=== PATIENT | female | born 1955 | race African-American/Black ===

== ENCOUNTER 2016-11-06 07:23 | Emergency (ER) | payer MEDICARE ==
[~2016-11-06] VITALS: Ht 152.4 cm; Wt 56.7 kg
[~2016-11-06 07:23] MED LIST: AMLO10TA4 PO; CODE1CAP19 PO; CODE1CAP8 PO; CYAN10005 PO; FERR325T72 PO; FURO-69 PO; HYDR-2666 PO; LISI-334 PO; OXYC-244 PO; OXYC-250 PO; OXYC-323 PO; OXYC10TA32 PO; Oxycodone Hcl/Acetaminophen PO; PANT40TA3 PO
[2016-11-06 07:46] VITALS: BP 139/71
--- NOTE | 2016-11-06 08:00 | PHYS DOC ---
Past Medical History Past Medical History: CVA, Hypertension, Migraines, Other Additional Past Medical Histor: Chronic back pain, Bulging discs Past Surgical History: Appendectomy, Hip Replacement, Hysterectomy, Tonsillectomy Additional Past Surgical Histo: Right hip replacement; tubal ligation, left rotator cuff Alcohol Use: None Drug Use: None Adult General Chief Complaint Chief Complaint: MECHANICAL FALL HPI HPI Patient is a 61 year old female with history of hypertension,migraines, CVA, chronic back pain, who presents today with right posterior neck pain that began 5 days ago after she fell. Patient states she hit her neck on the vanity. Patient denies any loss of consciousness. She appears restless this morning, she states she took MS Contin earlier this morning. Review of Systems Review of Systems Constitutional: Denies fever or chills [] Eyes: Denies change in visual acuity, redness, or eye pain [] HENT: Denies nasal congestion or sore throat [] Respiratory: Denies cough or shortness of breath [] Cardiovascular: No additional information not addressed in HPI [] GI: Denies abdominal pain, nausea, vomiting, bloody stools or diarrhea [] : Denies dysuria or hematuria [] Musculoskeletal: Neck pain Integument: Denies rash or skin lesions [] Neurologic: Denies headache, focal weakness or sensory changes [] Endocrine: Denies polyuria or polydipsia [] Allergies Allergies Allergies Coded Allergies Type Severity Reaction Last Updated Verified Penicillins Allergy Intermediate Rash 03/17/15 Yes Physical Exam Physical Exam Constitutional: Well developed, well nourished, no acute distress, non-toxic appearance. [] HENT: Normocephalic, atraumatic, bilateral external ears normal, oropharynx moist, no oral exudates, nose normal. [] Eyes: PERRLA, EOMI, conjunctiva normal, no discharge. [] Neck: Posterior right neck with a small contusion. Normal range of motion, mild paraspinal muscle tenderness to the right posterior cervical spine, no midline tenderness, supple, no stridor. [] Cardiovascular:Heart rate regular rhythm, no murmur [] Lungs & Thorax: Bilateral breath sounds clear to auscultation [] Abdomen: Bowel sounds normal, soft, no tenderness, no masses, no pulsatile masses. [] Skin: Warm, dry, no erythema, no rash. [] Back: No tenderness, no CVA tenderness. [] Extremities: No tenderness, no cyanosis, no clubbing, ROM intact, no edema. [] Neurologic: Alert and oriented X 3, normal motor function, normal sensory function, no focal deficits noted. [] Psychologic: Affect normal, judgement normal, mood normal. [] Current Patient Data Vital Signs Vital Signs Date Time Temp Pulse Resp B/P Pulse Ox O2 Delivery O2 Flow Rate FiO2 11/06/16 07:46 97.9 65 16 98 Room Air 97.9 EKG EKG [] Radiology/Procedures Radiology/Procedures []PROCEDURE: CERVICAL SPINE WO CONTRAST CERVICAL SPINE WO CONTRAST History:Pain, fall 5 days ago, right-sided pain Technique: Noncontrast CT imaging was performed of cervical spine, multiplanar reconstruction images submitted. Exposure: One or more of the following individualized dose reduction techniques were utilized for this exam: 1. Automated exposure control. 2. Adjustment of the mA and/or KV according to patient size. 3. Use of iterative reconstruction technique. Comparison: None Findings:There is mild/moderate reversal of the lordotic curvature centered about C4-5. Cervical vertebral body stature and AP alignment are adequate. Atlantoaxial distance is within normal limits, associated degenerative change. There is adequate alignment of the lateral masses of C1 relative to C2. Occipital condylar-C1 articulation is maintained. No acute cervical spine fracture is identified. There is no significant osseous cervical spinal stenosis or neural foramina compromise. Impression: 1.No acute cervical spine fracture is identified. There is reversal of the lordotic curvature, nonspecific although could be associated with spasm.. DICTATED and SIGNED BY: SERENA SERRANO MD DATE: 11/06/16 0852 CC: BRADY HEWITT APRN; SEEMA GUILLEN MD ~ Course & Med Decision Making Course & Med Decision Making Pertinent Labs and Imaging studies reviewed. (See chart for details) Patient is in the ED with neck pain after falling [address] of the cervical spine was negative for any acute findings but was noted for spasms. Patient was discharged with Flexeril, she already has MS Contin for chronic back pain. Heat recommended to her neck. Follow-up with her own PCP in the next 3-7 days. She was provided return precautions and discharged in stable condition. Dragon Disclaimer Dragon Disclaimer This electronic medical record was generated, in whole or in part, using a voice recognition dictation system. Departure Departure Impression: Primary Impression: Fall from standing Additional Impressions: Acute cervical sprain Spasm of cervical paraspinous muscle Disposition: 01 HOME, SELF-CARE Condition: STABLE Referrals: SEEMA GUILLEN MD (PCP) Follow-up with your own doctor in the next 3-7 days. Patient Instructions: Cervical Sprain, [id number] Additional Instructions: You were seen for neck pain after falling. We recommend you apply heat to the area. Take the muscle relaxers as needed. Continue taking your MS Contin for pain. Follow-up with your own doctor as needed. Scripts Cyclobenzaprine Hcl 10 Mg Tablet1 Tab PO TID #30 TAB Prov:BRADY HEWITT APRN 11/06/16 Problem Qualifiers Primary Impression: Fall from standing Encounter type: initial encounter Qualified Code: W19.XXXA - Unspecified fall, initial encounter Additional Impressions: Acute cervical sprain Encounter type: initial encounter Qualified Code: S13.9XXA - Sprain of joints and ligaments of unspecified parts of neck, initial encounter BRADY HEWITT APRN Nov 06, 2016 08:00
--- NOTE | 2016-11-06 08:58 | RAD ---
CERVICAL SPINE WO CONTRAST History:Pain, fall 5 days ago, right-sided pain Technique: Noncontrast CT imaging was performed of cervical spine, multiplanar reconstruction images submitted. Exposure: One or more of the following individualized dose reduction techniques were utilized for this exam: 1. Automated exposure control. 2. Adjustment of the mA and/or KV according to patient size. 3. Use of iterative reconstruction technique. Comparison: None Findings:There is mild/moderate reversal of the lordotic curvature centered about C4-5. Cervical vertebral body stature and AP alignment are adequate. Atlantoaxial distance is within normal limits, associated degenerative change. There is adequate alignment of the lateral masses of C1 relative to C2. Occipital condylar-C1 articulation is maintained. No acute cervical spine fracture is identified. There is no significant osseous cervical spinal stenosis or neural foramina compromise. Impression: 1.No acute cervical spine fracture is identified. There is reversal of the lordotic curvature, nonspecific although could be associated with spasm..
[2016-11-06] MEDS ORDERED: CYCL10TA2 PO (09:21)
== END 2016-11-06 09:35 | disposition home or self-care (01) ==
LOC: ER 07:23
DX: S13.4XXA Sprain of ligaments of cervical spine, initial encounter (principal); I10 Essential (primary) hypertension; G43.909 Migraine, unspecified, not intractable, without status migrainosus; G89.29 Other chronic pain; M54.9 Dorsalgia, unspecified; Z86.73 Personal history of transient ischemic attack (TIA), and cerebral infarction without residual deficits; Z09 Encounter for follow-up examination after completed treatment for conditions other than malignant neoplasm; Z96.641 Presence of right artificial hip joint; Z90.710 Acquired absence of both cervix and uterus; Z98.51 Tubal ligation status; Z88.0 Allergy status to penicillin; W01.198A Fall on same level from slipping, tripping and stumbling with subsequent striking against other object, initial encounter; Y93.89 Activity, other specified; Y92.89 Other specified places as the place of occurrence of the external cause; Y99.8 Other external cause status
CPT/HCPCS: 72125; 99284-25

== ENCOUNTER → 2017-06-15 | Outpatient (CLI) | payer MEDICARE ==
[~2017-06-15] MED LIST changes: +AMLO5TAB2 PO; +CYCL10TA2 PO; -HYDR-2666 PO; +HYDR-2758 PO; +MORP30TA83 PO; -OXYC-244 PO; -OXYC-250 PO; +OXYC-327 PO; +OXYC-328 PO; -OXYC10TA32 PO; +OXYC10TA45 PO; +SENN8.6T99 PO
[2017-06-15 11:51] LABS: BASO # 0.1 x10^3/uL (0.0-0.2); BASO % 2 % (0-3); EOS % 1 % (0-3); HEMATOCRIT 29.2 % (36.0-47.0); HEMOGLOBIN 9.8 g/dL (12.0-15.5); LYMPH # 2.4 x10^3/uL (1.0-4.8); LYMPH % 27 % (24-48); MEAN CORPUSCULAR HEMOGLOBIN 22 pg (25-35); MEAN CORPUSCULAR HGB CONC 34 g/dL (31-37); MEAN CORPUSCULAR VOLUME 66 fL (79-100); MONO % 6 % (0-9); NEUT % 64 % (31-73); PLATELET COUNT 383 x10^3/uL (140-400); RED BLOOD COUNT 4.43 x10^6/uL (3.50-5.40); RED CELL DISTRIBUTION WIDTH 20.9 % (11.5-14.5); WHITE BLOOD COUNT 8.7 x10^3/uL (4.0-11.0)
[2017-06-15 11:52] LABS: BILIRUBIN,URINE NEGATIVE (NEG); GLUCOSE,URINE NEGATIVE (NEG); NITRITE,URINE POSITIVE (NEG); PROTEIN,URINE NEGATIVE (NEG-TRACE); UROBILINOGEN,URINE 0.2 mg/dL (0.2 mg/dL)
--- NOTE | 2017-06-15 11:54 | EKG ---
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
[2017-06-15 11:59] LABS: ALBUMIN 3.2 g/dL (3.4-5.0); CALCIUM 8.5 mg/dL (8.5-10.1); CREATININE 0.7 mg/dL (0.6-1.0); GFR 103.3; POTASSIUM 3.3 mmol/L (3.5-5.1)
[2017-06-15 12:02] LABS: INR 1.1 (0.8-1.1); PROTHROMBIN TIME PATIENT 13.8 SEC (11.7-14.0)
[2017-06-15 12:12] LABS: BACTERIA,URINE MANY /HPF (0-FEW); RBC,URINE 0 /HPF (0-2); SQUAMOUS EPITHELIAL CELL,UR MOD /LPF; WBC,URINE >40 /HPF (0-4)
--- NOTE | 2017-06-15 12:23 | RAD ---
Indication preop. Anticipated shoulder replacement. Frontal and lateral views of the chest were obtained and are compared to an examination 03/16/2015. The heart and pulmonary vessels appear normal. The mediastinum has a normal appearance. The lungs are clear. There is no pleural fluid or pneumothorax. Degenerative changes are noted about the left shoulder. IMPRESSION:: No acute or focal process is seen in the chest
[2017-06-15 12:39] LABS: ANISOCYTOSIS MOD; HYPOCHROMIA MOD; MICROCYTOSIS MARKED; OVALOCYTES FEW; PLT ESTIMATE ADEQUATE (ADEQUATE); POIKILOCYTOSIS SLIGHT; TARGET CELLS MOD
[2017-06-15 12:40] LABS: SCHISTOCYTES FEW
== END | disposition home or self-care (01) ==
LOC: SURGPAT 10:44
PROVIDERS: ATTEND Orthopaedic Surgery
DX: Z01.818 Encounter for other preprocedural examination (principal); M19.012 Primary osteoarthritis, left shoulder; R79.89 Other specified abnormal findings of blood chemistry
CPT/HCPCS: 36415; 71020; 80048; 81001; 82040; 85025; 85610; 85651; 85730; 87086; 87186; 87641; 93005

== ENCOUNTER 2017-06-19 05:32 | Day surgery (SDC) | payer MEDICARE ==
[~2017-06-19] VITALS: Ht 152.4 cm; Wt 48.6 kg
[2017-06-19] MEDS ORDERED: HYDROcodone/APAP 7.5/325MG 1 TAB TABLET PO PRN (06:00)
[2017-06-19] MEDS ORDERED: TV=100ml MORPHINE 5 MG, KETOROLAC 30 MG, ROPIVacaine 0.5% PF 60 ML, EPINEPH... INT ART ONE ×5 (06:00)
[2017-06-19] MEDS ORDERED: CELECOXIB 200 MG CAPSULE. PO PRN (06:00)
[2017-06-19 06:18] LABS: BILIRUBIN,URINE NEGATIVE (NEG); GLUCOSE,URINE NEGATIVE (NEG); NITRITE,URINE POSITIVE (NEG); PH,URINE 6.5; PROTEIN,URINE NEGATIVE (NEG-TRACE); UROBILINOGEN,URINE 0.2 mg/dL (0.2 mg/dL)
[2017-06-19 06:26] LABS: BACTERIA,URINE MANY /HPF (0-FEW); SQUAMOUS EPITHELIAL CELL,UR MANY /LPF; WBC,URINE >40 /HPF (0-4)
[2017-06-19] MEDS: IV RINGERS,LACTATED 1000ML 1,000 ML IV SCH ×2 (06:34→06:45)
[2017-06-19] MEDS ORDERED: CLINDAMYCIN PREMIX 600 MG/50 ML BAG. IV ONE (06:40)
[2017-06-19] MEDS ORDERED: LIDOCAINE 1% PF 2 ML VIAL. ID PRN (07:00)
[2017-06-19] MEDS ORDERED: ONDANSETRON PF 4 MG/2 ML VIAL. IV PRN (07:00)
[2017-06-19] MEDS ORDERED: MORPHINE SULFATE 4 MG/ML DISP.SYRIN. IV PRN (07:00)
[2017-06-19] MEDS ORDERED: PROCHLORPERAZINE 10 MG/2 ML VIAL. IV PRN (07:00)
[2017-06-19] MEDS ORDERED: HYDROmorphone 2 MG/ML VIAL IV PRN (07:00)
[2017-06-19] MEDS ORDERED: fentaNYL PF VIAL 100 MCG/2 ML VIAL IV PRN ×2 (07:00)
[2017-06-19] MEDS ORDERED: CLINDAMYCIN 600MG PREMIX 50 ML IV PRN (08:00)
[2017-06-30] MEDS ORDERED: POTA10TA12 PO (16:36)
== END 2017-06-19 08:40 | disposition home or self-care (01) ==
LOC: OPSVCIP 05:32 → UNDOADMIN 05:32 → OPS 05:32 → EDSTATUS 07:30 → OPS 08:40 → UNDODISIN 08:40
PROVIDERS: ATTEND Orthopaedic Surgery
DX: M87.812 Other osteonecrosis, left shoulder (principal); Z53.8 Procedure and treatment not carried out for other reasons; I10 Essential (primary) hypertension; D57.3 Sickle-cell trait; K29.70 Gastritis, unspecified, without bleeding; K21.9 Gastro-esophageal reflux disease without esophagitis; E87.6 Hypokalemia; Z88.0 Allergy status to penicillin; Z86.73 Personal history of transient ischemic attack (TIA), and cerebral infarction without residual deficits; Z79.899 Other long term (current) drug therapy
CPT/HCPCS: 36415; 81001; 86850; 86900; 86901; 87086; 87186; J0171; J1885; J2270; J2795; J3490; J7120

== ENCOUNTER 2017-07-04 05:51 | Inpatient (IN) | payer MEDICARE ==
[~2017-07-04] VITALS: Ht 154.9 cm; Wt 51.3 kg
[2017-07-04] VITALS (8 sets, daily range): BP systolic 102–140; BP diastolic 61–85
[~2017-07-04 05:51] MED LIST changes: +POTA10TA12 PO
[2017-07-04] MEDS ORDERED: HYDROcodone/APAP 7.5/325MG 1 TAB TABLET PO PRN ×2 (06:00→07:45)
[2017-07-04] MEDS ORDERED: CELECOXIB 200 MG CAPSULE. PO PRN (06:00)
[2017-07-04] MEDS ORDERED: CLINDAMYCIN 600MG PREMIX 50 ML IV PRN (06:00)
[2017-07-04] MEDS ORDERED: MORPHINE SULFATE 2 MG/ML DISP.SYRIN. IV PRN (07:00)
[2017-07-04] MEDS ORDERED: IV RINGERS,LACTATED 1000ML 1,000 ML IV SCH (07:00)
[2017-07-04] MEDS ORDERED: ONDANSETRON PF 4 MG/2 ML VIAL. IV PRN (07:00)
[2017-07-04] MEDS ORDERED: PROCHLORPERAZINE 10 MG/2 ML VIAL. IV PRN (07:00)
[2017-07-04] MEDS ORDERED: HYDROmorphone 2 MG/ML VIAL IV PRN ×2 (07:00→07:45)
[2017-07-04] MEDS ORDERED: LIDOCAINE 1% PF 2 ML VIAL. ID PRN (07:00)
[2017-07-04] MEDS ORDERED: fentaNYL PF VIAL 100 MCG/2 ML VIAL IV PRN (07:00)
[2017-07-04] MEDS ORDERED: ROPIVacaine 0.5% PF 30 ML VIAL. ONE (07:01)
[2017-07-04] MEDS ORDERED: MIDAZOLAM HCL/PF 2 MG/2 ML VIAL. ONE ×2 (07:01→07:09)
[2017-07-04] MEDS ORDERED: DEXAMETHASONE SOD PHOS 20 MG/5 ML VIAL. ONE (07:05)
[2017-07-04] MEDS ORDERED: LIDOCAINE 2% PF Vial for OR 5 ML VIAL. ONE (07:05)
[2017-07-04] MEDS ORDERED: ONDANSETRON PF 4 MG/2 ML VIAL. ONE (07:05)
[2017-07-04] MEDS ORDERED: PROPOFOL 20 ML IV ONE (07:05)
[2017-07-04] MEDS ORDERED: FAMOTIDINE 20 MG/2 ML VIAL ONE (07:05)
[2017-07-04] MEDS ORDERED: CELE200C PO (07:08)
[2017-07-04] MEDS ORDERED: ROCURONIUM 100 MG/10 ML VIAL. ONE (07:08)
[2017-07-04] MEDS ORDERED: fentaNYL PF VIAL 100 MCG/2 ML VIAL ONE (07:08)
[2017-07-04] MEDS ORDERED: IV DEXTROSE 5 %-0.45 % NACL 1,000 ML IV SCH (07:39)
[2017-07-04] MEDS ORDERED: CALCIUM CARBONATE 500 MG TAB.CHEW PO PRN (07:45)
[2017-07-04] MEDS ORDERED: traMADol 50 MG TABLET PO PRN ×2 (07:45)
[2017-07-04] MEDS ORDERED: PROCHLORPERAZINE 5 MG TABLET. PO PRN (07:45)
[2017-07-04] MEDS ORDERED: HYDROcodone/APAP 10/325 1 TAB TABLET PO PRN (07:45)
[2017-07-04] MEDS ORDERED: ACETAMINOPHEN 325 MG TABLET. PO PRN (07:45)
[2017-07-04] MEDS ORDERED: ZOLPIDEM 5 MG TABLET. PO PRN (07:45)
[2017-07-04] MEDS ORDERED: DEXTROSE 50% 25 GM / 50ML DISP.SYRIN. IV PRN (07:45)
[2017-07-04] MEDS ORDERED: oxyCODONE/APAP 5/325 1 TAB TABLET PO PRN (07:45)
[2017-07-04] MEDS ORDERED: 0.9 % SODIUM CHLORIDE 10 ML DISP.SYRIN. IV PRN (07:45)
[2017-07-04] MEDS ORDERED: PHENYLEPHRINE in 0.9% NACL PF 1 MG/10 ML DISP.SYRIN. IV ONE (08:08)
--- NOTE | 2017-07-04 08:13 | HP ---
ADMIT DATE: 07/04/2017 Preoperative History and Physical: CHIEF COMPLAINT: Left shoulder pain. HISTORY OF PRESENT ILLNESS: The patient is a 62-year-old female who had a previous left frozen shoulder that resolved well, but had an episode a few months before where she was sleeping, lying on her left side, suddenly woke up with painful arm and fingers were numb and the shoulder continues to be very stiff and painful, difficulty reaching up and away from her body and constant pain even at the arm down at the side and with sleep. PAST MEDICAL HISTORY: Significant for hypertension, previous TIAs, headache, left shoulder pain, low back pain, avascular necrosis left hip, chronic pain syndrome. PAST SURGICAL HISTORY: Significant for total hip arthroplasty, tubal ligation and a previous left shoulder arthroscopy. FAMILY HISTORY: Significant for CHF and hypertension in her mother. Father with diabetes. Hypertension in her brother and several other siblings healthy, but family history also of diabetes, hypertension and sickle cell overall. SOCIAL HISTORY: Denies smoking, alcohol or drug use. She is , lives independently. MEDICATIONS: List is reviewed. ALLERGIES: INCLUDE PENICILLIN which gave her rash. REVIEW OF SYSTEMS: Denies any chest pain, shortness of breath, does have left shoulder pain, some radiating upper arm pain. Numbness and tingling have largely resolved. She still has some neck pain and chronic headaches at baseline. No focal weakness, numbness, tingling in the other extremities. Normal gait. No recent weight loss, change in bowel or bladder habits. PHYSICAL EXAMINATION: VITAL SIGNS: Per her admission sheet. GENERAL: She is alert and oriented, no acute distress, pleasant, calm and cooperative. HEENT: Atraumatic, normocephalic. HEART: Regular rate and rhythm. LUNGS: Clear to auscultation bilaterally. ABDOMEN: Benign. EXTREMITIES: Left shoulder reveals about 90 degrees elevation in forward flexion, 30 degrees elevation in abduction, extremes of internal and external rotation are limited. She has normal examination of the contralateral right shoulder, bilateral normal parascapular motion, good elbow and wrist motion, alignment, stability bilaterally. IMAGING: X-rays show significant collapse of the humeral head suspicious for avascular necrosis. IMPRESSION: Left shoulder pain and avascular necrosis. TREATMENT PLAN: We had previously gone over treatment options for her including a total shoulder arthroplasty, possibility of a reverse shoulder if rotator cuff is not intact which I expect it to be at this point. I emphasized to her the risks, benefits, postoperative course including the possibility of premature wear and loosening, infection, nerve or blood vessel damage, instability, medical or other anesthetic complications or continued pain and the long rehabilitation timeframe required for the shoulder, all her questions were answered. She wants to proceed with surgical evaluation and treatment with joint center admission to follow. RICKEY TINAJERO MD DR: DIANN/josh JOB#: [id number] / [id number]
[2017-07-04] MEDS: SENNOSIDES 8.6 MG TABLET PO SCH ×2 (09:00→20:26)
[2017-07-04] MEDS: LISINOPRIL 20 MG TABLET PO SCH (09:00)
[2017-07-04] MEDS: amLODIPine BESYLATE 5 MG TABLET PO SCH (09:00)
[2017-07-04] MEDS ORDERED: SENNOSIDES/DOCUSATE 8.6/50MG TABLET. PO SCH (09:00)
[2017-07-04] MEDS: MULTIVITAMIN with MINERAL TABLET. PO SCH (09:00)
[2017-07-04] MEDS: FUROSEMIDE 20 MG TABLET PO SCH (09:00)
[2017-07-04] MEDS: FERROUS SULFATE 325 MG TABLET. PO SCH ×2 (09:00→17:07)
[2017-07-04] MEDS ORDERED: NEOSTIGMINE METHYLSULFATE 5 MG/5 ML SYRINGE. ONE (09:53)
[2017-07-04] MEDS ORDERED: SEVOFLURANE > 120 MINUTES. IH ONE (09:54)
[2017-07-04] MEDS: fentaNYL PF VIAL 100 MCG/2 ML VIAL IV PRN ×3 (11:10→19:23)
--- NOTE | 2017-07-04 11:32 | RAD ---
Indication postop. 2 views of the left shoulder were obtained. There is a shoulder prosthesis. No complication or unexpected finding is seen. Postoperative changes are noted associated with the soft tissues.
--- NOTE | 2017-07-04 13:40 | PDOC4 ---
Operative Note Operative Note Date of surgery 07/04/2017 Preoperative diagnosis avascular necrosis left shoulder Postoperative diagnosis: Same Procedure: Left total shoulder arthroplasty Surgeon: Cindy Anesthesia: Gen. endotracheal plus interscalene block Estimated blood loss: 150 mL Complications: None Specimens: Dropped but sent for gross Operative indications: Patient is a 62-year-old female with long-standing left shoulder pain unresponsive to nonoperative treatment including injections physical therapy activity modification. X-rays showed avascular necrosis and she has very limited range of motion secondary to pain but apparently intact rotator cuff to its limited in function due to pain. I had gone over with her the possibility of total shoulder arthroplasty risks benefits postoperative course including infection premature wear or loosening continued pain nerve or blood vessel damage instability medical or other anesthetic consultations among others and the long recovery process typical of shoulder surgery all her questions were answered she wants proceed with surgical evaluation and treatment Operative text: Patient was identified procedure verified patient placed in the supine position on the operating table. After adequate amounts of general endotracheal anesthesia and pre-existing scalene block were obtained she was placed with the Tmax head rest and spider arm perkins and the left shoulder prepped and draped in standard sterile fashion. After timeout was performed patient procedure identified and verified a standard deltopectoral approach was carried out with the deltoid and cephalic vein taken laterally rotator cuff was noted to be intact deltoid was released distally and a small pectoralis release superiorly was carried out. Subscapularis was detached from its insertion and tagged with Ethibond suture. Severe avascular necrosis and collapse was confirmed with loose cartilage in the joint and degenerative changes on the glenoid side as well. The Belia Bigliani [place] shoulder system was used and anatomic cut was made reaming carried out up to a size 11 but trial fit very tightly and a size 10 trial was placed glenoid was exposed labrum was excised capsular release was carried out and any remaining glenoid cartilage was scraped away central drill hole was placed and anterior and superior drill holes were then carried out as well a size 46 trial glenoid was placed noted to have good coverage overall and an 18 module humerus head by 46 mm spherical head diameter was trial fit and noted to have overall good motion and adequate stability. Larger sizes were noted to have signs of overstuffing. Trial components were removed glenoid was repaired and dried and a 46 mm Bigliani [place] pegged glenoid component 46 mm diameter was cemented in place excess cement was removed a size 10 mm module humeral stem was noted to have excellent fit and placed in proper version. Trial fitting again carried out with the 18/ 46 modular humeral head which gave excellent stability and motion as well as ligament balance. Trial components were removed a 18 x 46 modular humeral head was tapped in place thorough irrigation carried out normal saline solution subscapularis repaired with #5 Ethibond suture superior pectoralis was likewise repaired fascial closure with #1 PDS strata fix subcutaneous closure with buried Vicryl and skin closure with 3-0 Monocryl strata fix suture sterile dressings were applied patient was returned to recovery room in stable condition having tolerated procedure well. Claudia francisco was present for the procedure assisted and skin closure RICKEY TINAJERO MD Jul 04, 2017 13:40
[2017-07-04] MEDS: CLINDAMYCIN 900MG PREMIX 50 ML IV SCH ×2 (13:55→19:53)
[2017-07-04] MEDS: oxyCODONE/APAP 7.5/325 1 TAB TABLET PO PRN ×2 (17:09→20:26)
[2017-07-04] MEDS: CELECOXIB 200 MG CAPSULE. PO SCH (20:26)
[2017-07-04] MEDS: MORPHINE ER 15 MG TABLET.ER PO SCH (20:32)
[2017-07-05] MEDS: CLINDAMYCIN 900MG PREMIX 50 ML IV SCH (02:16)
[2017-07-05 03:00] VITALS: BP 127/76
[2017-07-05 05:15] LABS: HEMATOCRIT 21.3 % (36.0-47.0)
[2017-07-05] MEDS ORDERED: MAGNESIUM HYDROXIDE 2,400 MG/30 ML ORAL.SUSP. PO PRN (06:00)
[2017-07-05 06:32] VITALS: BP 141/73
[2017-07-05] MEDS ORDERED: POTASSIUM CHLORIDE 10 MEQ TABLET.ER. PO SCH (08:00)
[2017-07-05] MEDS: SENNOSIDES 8.6 MG TABLET PO SCH (08:16)
[2017-07-05] MEDS: FUROSEMIDE 20 MG TABLET PO SCH (08:16)
[2017-07-05] MEDS: FERROUS SULFATE 325 MG TABLET. PO SCH (08:16)
[2017-07-05] MEDS: amLODIPine BESYLATE 5 MG TABLET PO SCH (08:16)
[2017-07-05] MEDS: MULTIVITAMIN with MINERAL TABLET. PO SCH (08:17)
[2017-07-05] MEDS: MORPHINE ER 15 MG TABLET.ER PO SCH (08:17)
[2017-07-05] MEDS: CELECOXIB 200 MG CAPSULE. PO SCH (08:17)
[2017-07-05] MEDS: LISINOPRIL 20 MG TABLET PO SCH (08:17)
[2017-07-05] MEDS: oxyCODONE/APAP 7.5/325 1 TAB TABLET PO PRN (10:23)
[2017-07-05] MEDS ORDERED: OXYC-327 PO (11:17)
[2017-07-05 15:00] VITALS: BP 93/64
[2017-07-05] MEDS ORDERED: BISACODYL 10 MG SUPP.RECT. PR PRN (16:00)
--- NOTE | 2017-07-05 18:08 | DS ---
DATE OF DISCHARGE: 07/05/2017 PRINCIPAL DIAGNOSIS: Avascular necrosis of left shoulder. PROCEDURE: Left total shoulder arthroplasty. DISPOSITION MEDICATIONS: Percocet 7.5/325 one p.o. q. 4 hours p.r.n. pain, Celebrex 200 mg p.o. daily and resume home medications. RESTRICTIONS: Include reporting any redness, drainage, fever, chills, uncontrolled pain or other problems. Gentle range of motion of left shoulder with physical therapy, avoiding extreme of external rotation. Sling for comfort. Follow up with Dr. White in 10-14 days. BRIEF DESCRIPTION OF HOSPITAL COURSE: The patient underwent an uncomplicated left total shoulder arthroplasty, had good pain control overall. She was asymptomatic, although her blood loss in surgery was listed as 350 mL by Anesthesia. The actual blood loss is significantly less, estimated about 150 mL at most. Before there was actually any fluid collected in the [place] suction machine, it was reading 180 mL; now therefore, I am skeptical of that amount. Postop hemoglobin was 7.0, although she is usually anemic and had no symptoms. Vital signs were stable and she got up and around well with physical therapy, did very well and was discharged home in stable condition. RICKEY WHITE MD DR: DIANN/josh JOB#: [id number] / [id number]
--- NOTE | 2017-07-06 14:48 | PATHOLOGY ---
PATHOLOGY REPORT * * * * * * * * FINAL DIAGNOSIS: Humeral head, left total shoulder arthroplasty: - Degenerative arthritis. (JPM:chidi; 07/06/2017) REPORT ELECTRONICALLY SIGNED BY: Delroy Gonzalez M.D. DATE/TIME: 07/06/2017 14:47 * * * * * * * * GROSS PATHOLOGY: Received in formalin labeled "Earle Spaulding, left shoulder tissue," is a humeral head measuring 4.0 x 4.0 x 1.3 cm in greatest dimensions. The articular surface is smooth to granular and pale steiner to light brown, with some cartilage separation from the bone surface. Sectioning the bone reveals mottled, pale white to pink-yellow cut surfaces. [employer]ing [employer] tissue is submitted in cassette A1, following decalcification. (DAC; 07/05/2017) INITIAL CPT CODE(S): A; 41618, 62638 Professional services [place] [place] [address] Technical services performed by [facility] at [address] [place] [address] [address], [place] [address]. SPECIMEN(S) RECEIVED: A.Left shoulder tissue CLINICAL HISTORY: Left shoulder pain PATIENT: EARLE SPAULDING /AGE: 6 1955 (Age: 62) PATIENT #: [id number] ALT CASE #: SPECIMEN COLLECTION DATE: 07/04/2017 SPECIMEN RECEIVED DATE: 07/04/2017 [facility] - [address] [place] [address] - PHONE: [phone] * * * END OF REPORT * * *
== END 2017-07-05 15:15 | disposition home or self-care (01) | DRG 483 ==
LOC: OPSVCIP 05:51 → 4 SOUTHEST 11:50
PROVIDERS: ADMIT Orthopaedic Surgery; ATTEND Orthopaedic Surgery
PROC: 0RRK0JZ Replacement of Left Shoulder Joint with Synthetic Substitute, Open Approach (ICD-10-PCS; principal; 2017-07-04 07:30)
DX: M87.812 Other osteonecrosis, left shoulder (principal); D57.1 Sickle-cell disease without crisis; I10 Essential (primary) hypertension; G89.4 Chronic pain syndrome; Z82.49 Family history of ischemic heart disease and other diseases of the circulatory system; Z83.3 Family history of diabetes mellitus; Z86.73 Personal history of transient ischemic attack (TIA), and cerebral infarction without residual deficits; Z96.649 Presence of unspecified artificial hip joint; Z98.51 Tubal ligation status; Z88.0 Allergy status to penicillin
CPT/HCPCS: 36415; 73030; 85014; 85018; 86850; 86900; 86901; 88304; 88311; J1100; J2250; J2370; J2405; J2704; J2710; J2795; J3010; J3490; J7030; J7120; S0028; 97110; 97116; 97535; C1769; J2001

== ENCOUNTER → 2018-02-13 | Outpatient (CLI) | payer MEDICARE | END | disposition home or self-care (01) | LOC: MRI 10:54 | DX: M48.061 Spinal stenosis, lumbar region without neurogenic claudication (principal); D18.09 Hemangioma of other sites; G89.29 Other chronic pain; E87.6 Hypokalemia; I10 Essential (primary) hypertension | CPT/HCPCS: 72148 ==

== ENCOUNTER 2018-12-18 05:47 | Inpatient (IN) | payer MEDICARE ==
[~2018-12-18] VITALS: Ht 152.4 cm; Wt 56.8 kg
[~2018-12-18 05:47] MED LIST changes: +AMLO5TAB10 PO; -AMLO5TAB2 PO; +CELE200C PO; -HYDR-2758 PO; +HYDR-2761 PO; -OXYC-323 PO; -OXYC-327 PO; -OXYC-328 PO; -OXYC10TA45 PO; +OXYC10TA46 PO; +OXYC1TAB15 PO; +OXYC1TAB19 PO; +OXYC1TAB22 PO
[2018-12-18] MEDS ORDERED: IPRATRPIUM/ALBUTEROL 0.5/2.5MG 3 ML NEBU. NEB ONE (06:15)
[2018-12-18] MEDS ORDERED: IV NORMAL SALINE 1000ML BAG 1,000 ML IV ONE (06:15)
[2018-12-18] MEDS ORDERED: methylPREDNISolone SOD SUCC PF 125 MG/2 ML VIAL. IV ONE (06:15)
[2018-12-18 06:34] LABS: BASO % 0 % (0-3); EOS # 0.1 x10^3/uL (0.0-0.7); EOS % 1 % (0-3); HEMATOCRIT 30.8 % (36.0-47.0); HEMOGLOBIN 10.1 g/dL (12.0-15.5); LYMPH # 1.4 x10^3/uL (1.0-4.8); LYMPH % 19 % (24-48); MEAN CORPUSCULAR HEMOGLOBIN 24 pg (25-35); MEAN CORPUSCULAR HGB CONC 33 g/dL (31-37); MEAN CORPUSCULAR VOLUME 72 fL (79-100); MONO # 0.7 x10^3/uL (0.0-1.1); MONO % 9 % (0-9); NEUT # 5.2 x10^3uL (1.8-7.7); NEUT % 71 % (31-73); PLATELET COUNT 274 x10^3/uL (140-400); RED BLOOD COUNT 4.27 x10^6/uL (3.50-5.40); RED CELL DISTRIBUTION WIDTH 19.9 % (11.5-14.5); WHITE BLOOD COUNT 7.4 x10^3/uL (4.0-11.0)
[2018-12-18 06:40] LABS: ALBUMIN 3.3 g/dL (3.4-5.0); ALBUMIN/GLOBULIN RATIO 0.9 (1.0-1.7); CALCIUM 8.3 mg/dL (8.5-10.1); CREATININE 0.8 mg/dL (0.6-1.0); GFR 88.2; TOTAL BILIRUBIN 0.2 mg/dL (0.2-1.0); TOTAL PROTEIN 6.8 g/dL (6.4-8.2)
[2018-12-18 06:43] LABS: POTASSIUM 2.6 mmol/L (3.5-5.1)
[2018-12-18 06:44] LABS: INFLUENZA A PATIENT POSITIVE (NEGATIVE); INFLUENZA B PATIENT NEGATIVE (NEGATIVE)
[2018-12-18] MEDS ORDERED: POTASSIUM CHLORIDE 20 MEQ TABLET.ER. PO ONE (07:00)
--- NOTE | 2018-12-18 07:20 | EKG ---
[facility] [address] [place] [address] Test Date: 2018-12-18 Test Time: 05:55:28 Pat Name: EARLE SPAULDING Department: Room: Gender: F Hourly Associate: : 1955 Requested By: MORA AGUILAR Order Number: [id number] Reading MD: Anthony Back MD Measurements Intervals [place] Rate: 74 P: 56 [place]: 174 QRS: 35 QRSD: 90 T: 43 QT: 392 QTc: 440 Interpretive Statements SINUS RHYTHM Electronically Signed On 12-18-2018 9:31:33 CDT by Anthony Back MD
--- NOTE | 2018-12-18 07:27 | PHYS DOC ---
Past Medical History Past Medical History: CVA, Hypertension, Migraines, Other Additional Past Medical Histor: Chronic back pain, Bulging discs Past Surgical History: Appendectomy, Hip Replacement, Hysterectomy, Tonsillectomy Additional Past Surgical Histo: Right hip replacement; tubal ligation, left rotator cuff Alcohol Use: None Drug Use: None Adult General Chief Complaint Chief Complaint: COUGH HPI HPI Patient is a 63-year-old female with multiple medical problems presents stating she's had subjective fever cough, congestion, body aches and malaise over the last couple days. She seems to think her cough and shortness of breath is worsening. It's her multiple other people in her home sick with similar illness. She did not have a flu shot this year. She states her temperature was as high as 100 yesterday.[] Review of Systems Review of Systems Constitutional: Per history of present illness[] Eyes: Denies change in visual acuity, redness, or eye pain [] HENT: Denies nasal congestion or sore throat [] Respiratory: Reports cough, shortness of breath and dyspnea on exertion[] Cardiovascular: No additional information not addressed in HPI [] GI: Denies abdominal pain, nausea, vomiting, bloody stools or diarrhea [] : Denies dysuria or hematuria [] Musculoskeletal: Denies back pain or joint pain [] Integument: Denies rash or skin lesions [] Neurologic: Denies headache, focal weakness or sensory changes [] Endocrine: Denies polyuria or polydipsia [] All other systems were reviewed and found to be within normal limits, except as documented in this note. Current Medications Current Medications Current Medications Medications (Trade) Dose Ordered Sig/Allison Start Time Stop Time Status Last Admin Dose Admin Albuterol/ Ipratropium (Duoneb) 6 ml 1X ONCE 12/18/18 06:15 12/18/18 06:16 DC 12/18/18 06:26 6 ML Methylprednisolone Sodium Succinate (SOLU-Medrol 125MG VIAL) 125 mg 1X ONCE 12/18/18 06:15 12/18/18 06:16 DC 12/18/18 06:34 125 MG Ondansetron HCl (Zofran) 4 mg PRN Q8HRS PRN 12/18/18 07:45 12/19/18 07:44 Potassium Chloride (Klor-Con) 40 meq 1X ONCE 12/18/18 07:00 12/18/18 07:02 DC 12/18/18 07:16 40 MEQ Sodium Chloride 1,000 ml @ 125 mls/hr Q8H 12/18/18 07:32 12/19/18 07:31 Allergies Allergies Allergies Coded Allergies Type Severity Reaction Last Updated Verified Penicillins Allergy Intermediate Rash 07/04/17 Yes Physical Exam Physical Exam Constitutional: Well developed, well nourished, moderate distress, appears acutely ill but nontoxic. [] HENT: Normocephalic, atraumatic, bilateral external ears normal, oropharynx moist, no oral exudates, nose normal. [] Eyes: PERRLA, EOMI, conjunctiva normal, no discharge. [] Neck: Normal range of motion, no tenderness, supple, no stridor. [] Cardiovascular:Heart rate regular rhythm, no murmur [] Lungs & Thorax: Scattered wheezes throughout both lungs[] Abdomen: Bowel sounds normal, soft, no tenderness, no masses, no pulsatile masses. [] Skin: Warm, dry, no erythema, no rash. [] Back: No tenderness, no CVA tenderness. [] Extremities: No tenderness, no cyanosis, no clubbing, ROM intact, no edema. [] Neurologic: Alert and oriented X 3, normal motor function, normal sensory function, no focal deficits noted. [] Psychologic: Very anxious. [] Current Patient Data Vital Signs Vital Signs Date Time Temp Pulse Resp B/P (MAP) Pulse Ox O2 Delivery O2 Flow Rate FiO2 12/18/18 07:30 78 144/80 (101) 100 Room Air 12/18/18 05:47 97.8 18 97.8 Lab Values Laboratory Tests Test 12/18/18 06:10 White Blood Count 7.4 x10^3/uL (4.0-11.0) Red Blood Count 4.27 x10^6/uL (3.50-5.40) Hemoglobin 10.1 g/dL (12.0-15.5) L Hematocrit 30.8 % (36.0-47.0) L Mean Corpuscular Volume 72 fL (79-100) L Mean Corpuscular Hemoglobin 24 pg (25-35) L Mean Corpuscular Hemoglobin Concent 33 g/dL (31-37) Red Cell Distribution Width 19.9 % (11.5-14.5) H Platelet Count 274 x10^3/uL (140-400) Neutrophils (%) (Auto) 71 % (31-73) Lymphocytes (%) (Auto) 19 % (24-48) L Monocytes (%) (Auto) 9 % (0-9) Eosinophils (%) (Auto) 1 % (0-3) Basophils (%) (Auto) 0 % (0-3) Neutrophils # (Auto) 5.2 x10^3uL (1.8-7.7) Lymphocytes # (Auto) 1.4 x10^3/uL (1.0-4.8) Monocytes # (Auto) 0.7 x10^3/uL (0.0-1.1) Eosinophils # (Auto) 0.1 x10^3/uL (0.0-0.7) Basophils # (Auto) 0.0 x10^3/uL (0.0-0.2) Sodium Level 147 mmol/L (136-145) H Potassium Level 2.6 mmol/L (3.5-5.1) *L Chloride Level 110 mmol/L (98-107) H Carbon Dioxide Level 21 mmol/L (21-32) Anion Gap 16 (6-14) H Blood Urea Nitrogen 7 mg/dL (7-20) Creatinine 0.8 mg/dL (0.6-1.0) Estimated GFR (Cockcroft-Gault) 88.2 BUN/Creatinine Ratio 9 (6-20) Glucose Level 88 mg/dL (70-99) Calcium Level 8.3 mg/dL (8.5-10.1) L Total Bilirubin 0.2 mg/dL (0.2-1.0) Aspartate Amino Transferase (AST) 18 U/L (15-37) Alanine Aminotransferase (ALT) 12 U/L (14-59) L Alkaline Phosphatase 90 U/L (46-116) Troponin I Quantitative < 0.017 ng/mL (0.000-0.055) NC-Afx-U-Type Natriuretic Peptide 28 pg/mL (0-124) Total Protein 6.8 g/dL (6.4-8.2) Albumin 3.3 g/dL (3.4-5.0) L Albumin/Globulin Ratio 0.9 (1.0-1.7) L Influenza Type A Antigen Positive (NEGATIVE) Influenza Type B Antigen Negative (NEGATIVE) Laboratory Tests 12/18/18 06:10 Laboratory Tests 12/18/18 06:10 EKG EKG [] Interpretation Time: EKG: Normal sinus rhythm rate of [address]-T changes Radiology/Procedures Radiology/Procedures [] Impressions: PROCEDURE: CHEST AP ONLY Portable chest, 12/18/2018: HISTORY: Cough, flu Comparison is made to a study from 06/15/2017. The heart is at the upper limits of normal in size. The pulmonary vascularity is normal. No pulmonary infiltrate is seen. There is no evidence of pleural fluid. A left shoulder prosthesis is in place. IMPRESSION: No acute cardiopulmonary abnormality is detected. Course & Med Decision Making Course & Med Decision Making Pertinent Labs and Imaging studies reviewed. (See chart for details) [ED course: Evaluation reveals a 63-year-old female is influenza positive. She was wheezing on arrival received DuoNeb 2 with only minimal improvement. She also received Solu-Medrol IV. Given the fact that she still is wheezing and very short of breath I feel she needs to be admitted to the hospital for evaluation. Her oxygen saturation was in the 80s with just walking around the room.] Dragon Disclaimer Dragon Disclaimer This electronic medical record was generated, in whole or in part, using a voice recognition dictation system. Departure Departure Impression: Primary Impression: Acute bronchospasm Additional Impression: Influenza A Disposition: 09 ADMITTED INPATIENT Admitting Physician: Yuan Bullock Condition: GUARDED Referrals: MALISSA ANTOINE (PCP) Problem Qualifiers MORA AGUILAR DO Dec 18, 2018 07:27
[2018-12-18] MEDS ORDERED: ONDANSETRON PF 4 MG/2 ML VIAL. IV PRN (07:45)
--- NOTE | 2018-12-18 07:48 | RAD ---
Portable chest, 12/18/2018: HISTORY: Cough, flu Comparison is made to a study from 06/15/2017. The heart is at the upper limits of normal in size. The pulmonary vascularity is normal. No pulmonary infiltrate is seen. There is no evidence of pleural fluid. A left shoulder prosthesis is in place. IMPRESSION: No acute cardiopulmonary abnormality is detected. Electronically signed by: Quinten Villa MD (12/18/2018 7:46 AM) [facility]
[2018-12-18] MEDS: IPRATRPIUM/ALBUTEROL 0.5/2.5MG 3 ML NEBU. NEB SCH ×4 (08:00→19:19)
--- NOTE | 2018-12-18 09:17 | NUR ---
IP: Pt is influenza + requiring droplet precautions for 5 days and 24 hours without a fever, whichever is longest.
[2018-12-18 09:30] VITALS: BP 131/65
[2018-12-18] MEDS: IV NORMAL SALINE 1000ML BAG 1,000 ML IV SCH ×2 (10:04→17:00)
[2018-12-18 10:54] VITALS: BP 142/82
[2018-12-18] MEDS: HYDROcodone/APAP 5/325MG 1 TAB TABLET PO PRN ×4 (11:27→23:27)
[2018-12-18] MEDS: OSELTAMIVIR 75 MG CAPSULE PO SCH ×2 (11:27→21:10)
--- NOTE | 2018-12-18 11:47 | HP ---
ADMIT DATE: 12/18/2018 CHIEF COMPLAINT: Shortness of breath and cough, fever, weakness. HISTORY OF PRESENT ILLNESS: The patient is a pleasant middle-aged female who presents with the above chief complaints. Basically, she has prodrome of viral syndrome. We did check for the flu. Here in the ER, she is positive. She does have multiple family members at home who have similar illness. Describes as agonizing, rated at 9/10, worse with moving, better with sitting still. We are going to admit the patient and give her some Tamiflu, IV fluids and resume her home meds, do some symptomatic management. PAST MEDICAL HISTORY: Hypertension, chronic pain, arthritis, narcotic dependent (she is on MS Contin, Percocet and Fiorinal), constipation. ALLERGIES: PENICILLIN. FAMILY HISTORY: Coronary artery disease. SOCIAL HISTORY: She does not drink, smoke or take drugs. MEDICATIONS: Reviewed, please refer to the MRAD. She is on amlodipine, lisinopril, Celebrex, Fiorinal, MS Contin, Percocet, potassium, Lasix and Senokot. REVIEW OF SYSTEMS: GENERAL: She complains of fevers. SKIN: No bruising, hair changes or rashes. EYES: No blurred, double or loss of vision. NOSE AND THROAT: No history of nosebleeds, hoarseness or sore throat. HEART: No history of palpitations, chest pain or shortness of breath on exertion. LUNGS: She complains of a cough. GASTROINTESTINAL: Denies changes in appetite, nausea, vomiting, diarrhea or constipation. GENITOURINARY: No history of frequency, urgency, hesitancy or nocturia. NEUROLOGIC: Denies history of numbness, tingling, tremor or weakness. PSYCHIATRIC: No history of panic, anxiety or depression. ENDOCRINE: No history of heat or cold intolerance, polyuria or polydipsia. EXTREMITIES: Denies muscle weakness, joint pain, pain on walking or stiffness. MUSCULOSKELETAL: She complains of weakness. PHYSICAL EXAMINATION: VITAL SIGNS: Temperature afebrile, pulse 92, respirations 18, blood pressure 131/65, O2 sat 96%. GENERAL: She is awake, very weak, appears quite ill. HEART: Distant S1, S2. LUNGS: Fine crackles. ABDOMEN: Soft. EXTREMITIES: Trace edema. SKIN: No rashes. PSYCHIATRIC: She seems depressed. VASCULAR: Good capillary refill. ENDOCRINE: No thyromegaly. LYMPHATICS: No cervical nodes. HEMATOPOIETIC: No bruises. LABORATORY DATA: White count 7, hemoglobin 10, platelets 274. Electrolytes: Sodium 147, potassium 2.6, chloride 110, bicarbonate 21, BUN 7, creatinine 0.8, glucose 88. Chest x-ray negative. ASSESSMENT AND PLAN: Influenza, hypokalemia, hypernatremia anion gap metabolic acidosis. The patient has been admitted. We will give her Tamiflu 75 p.o. b.i.d., IV fluids, replace potassium. Home meds, frequent labs. DVT prophylaxis. Full code. JOE BARNES DO DR: JULIANE/josh JOB#: [id number] / [id number]
--- NOTE | 2018-12-18 15:01 | NUR ---
Patient eligible for flu vaccine. She refused to have it administered today, prefers the shot to be given tomorrow.
[2018-12-18 15:04] VITALS: BP 142/82
[2018-12-18 15:20] VITALS: BP 160/99
--- NOTE | 2018-12-18 18:42 | NUR ---
Patient complains of intermittent substernal pain, squeezing, 9/10 for 2 days aggravated by cough, partially relieved by ibuprofen. Gave prn Lortab for pain, with relief to 5/10. Patient denies chest pain, abdominal pain, or radiation to the back. Abdomen is soft, non tender. We'll continue to monitor patient.
[2018-12-18 19:51] VITALS: BP 138/63
[2018-12-18 23:08] VITALS: BP 143/66
[2018-12-19 03:07] VITALS: BP 114/75
[2018-12-19] MEDS: IV NORMAL SALINE 1000ML BAG 1,000 ML IV SCH (03:52)
[2018-12-19] MEDS: HYDROcodone/APAP 5/325MG 1 TAB TABLET PO PRN (06:31)
[2018-12-19 07:30] VITALS: BP 165/94
[2018-12-19] MEDS ORDERED: oxyCODONE/APAP 7.5/325 1 TAB TABLET PO PRN (09:15)
[2018-12-19] MEDS ORDERED: ACETAMINOPHEN 500 MG TABLET PO PRN (09:15)
[2018-12-19] MEDS ORDERED: CELECOXIB 400 MG PO SCH (09:15)
[2018-12-19] MEDS ORDERED: ONDANSETRON PF 4 MG/2 ML VIAL. IV PRN (09:15)
[2018-12-19] MEDS ORDERED: ACETAMINOPHEN/CODEINE 300/30MG TABLET. PO PRN (09:15)
[2018-12-19] MEDS ORDERED: ONDANSETRON ODT 4 MG TAB.RAPDIS. PO PRN (09:15)
[2018-12-19] MEDS ORDERED: POTASSIUM CL 40MEQ IN 0.9%NACL 1,000 ML IV ONE (09:30)
[2018-12-19] MEDS ORDERED: BUTALB/APAP/CAFEIN 50/325/40MG TABLET. PO PRN (09:30)
[2018-12-19] MEDS: SENNOSIDES 8.6 MG TABLET PO SCH ×2 (09:30→20:55)
[2018-12-19 09:53] LABS: CREATININE 0.6 mg/dL (0.6-1.0)
[2018-12-19 09:56] LABS: POTASSIUM 2.8 mmol/L (3.5-5.1)
[2018-12-19] MEDS: IPRATRPIUM/ALBUTEROL 0.5/2.5MG 3 ML NEBU. NEB SCH ×4 (10:02→21:29)
--- NOTE | 2018-12-19 10:27 | PDOC ---
PROGRESS NOTES Chief Complaint Chief Complaint Influenza A+ Mild hypernatremia-147 Critical hypokalemia 2.6 SOA, cough, fevers secondary to above SIRS POA Increase anion gap 16 on admission By mouth intake 7 days Chronic leg edema-currently none--maintained on Lasix at home History of Present Illness History of Present Illness Admits to poor by mouth intake 7 days Potassium 2.6, sodium 147. Unsure why IVF was stopped yesterday So far no fevers here but was febrile at home. Anion gap 16 Plan: Restart fluids, I have elyte abnormalities i e increase anion gap KCl 401 K containing IVF for now Recheck potassium tomorrow Tamiflu started Other supportive meds, Robitussin, DuoNeb, H1 antagonists Never smoker Agrees with my plan of care Vitals Vitals Vital Signs Date Time Temp Pulse Resp B/P (MAP) Pulse Ox O2 Delivery O2 Flow Rate FiO2 12/19/18 10:02 Room Air 12/19/18 07:30 97.9 79 18 165/94 (117) 100 97.9 Physical Exam General: Alert, Oriented X3, Cooperative, No acute distress Heart: Regular rate, Normal S1, Normal S2 Lungs: Clear Abdomen: Normal bowel sounds, Soft, No tenderness Extremities: No clubbing, No cyanosis, No edema, Normal pulses Skin: No rashes, No breakdown, No significant lesion Labs LABS Laboratory Tests Test 12/19/18 09:30 Sodium Level 144 mmol/L (136-145) Potassium Level 2.8 mmol/L (3.5-5.1) Chloride Level 110 mmol/L (98-107) Carbon Dioxide Level 19 mmol/L (21-32) Anion Gap 15 (6-14) Blood Urea Nitrogen 5 mg/dL (7-20) Creatinine 0.6 mg/dL (0.6-1.0) Estimated GFR (Cockcroft-Gault) 123.0 Glucose Level 121 mg/dL (70-99) Calcium Level 8.0 mg/dL (8.5-10.1) Review of Systems Review of Systems Weak, myalgias, fevers, cough, no increased S OA, the rest of ROS 14 point negative Assessment and Plan Assessmemt and Plan Problems Medical Problems: (1) Acute bronchospasm Status: Acute (2) Influenza A Status: Acute Comment Review of Relevant I have reviewed the following items lefty (where applicable) has been applied. Labs Laboratory Tests Test 12/18/18 06:10 12/19/18 09:30 White Blood Count 7.4 x10^3/uL (4.0-11.0) Red Blood Count 4.27 x10^6/uL (3.50-5.40) Hemoglobin 10.1 g/dL (12.0-15.5) Hematocrit 30.8 % (36.0-47.0) Mean Corpuscular Volume 72 fL (79-100) Mean Corpuscular Hemoglobin 24 pg (25-35) Mean Corpuscular Hemoglobin Concent 33 g/dL (31-37) Red Cell Distribution Width 19.9 % (11.5-14.5) Platelet Count 274 x10^3/uL (140-400) Neutrophils (%) (Auto) 71 % (31-73) Lymphocytes (%) (Auto) 19 % (24-48) Monocytes (%) (Auto) 9 % (0-9) Eosinophils (%) (Auto) 1 % (0-3) Basophils (%) (Auto) 0 % (0-3) Neutrophils # (Auto) 5.2 x10^3uL (1.8-7.7) Lymphocytes # (Auto) 1.4 x10^3/uL (1.0-4.8) Monocytes # (Auto) 0.7 x10^3/uL (0.0-1.1) Eosinophils # (Auto) 0.1 x10^3/uL (0.0-0.7) Basophils # (Auto) 0.0 x10^3/uL (0.0-0.2) Sodium Level 147 mmol/L (136-145) 144 mmol/L (136-145) Potassium Level 2.6 mmol/L (3.5-5.1) 2.8 mmol/L (3.5-5.1) Chloride Level 110 mmol/L (98-107) 110 mmol/L (98-107) Carbon Dioxide Level 21 mmol/L (21-32) 19 mmol/L (21-32) Anion Gap 16 (6-14) 15 (6-14) Blood Urea Nitrogen 7 mg/dL (7-20) 5 mg/dL (7-20) Creatinine 0.8 mg/dL (0.6-1.0) 0.6 mg/dL (0.6-1.0) Estimated GFR (Cockcroft-Gault) 88.2 123.0 BUN/Creatinine Ratio 9 (6-20) Glucose Level 88 mg/dL (70-99) 121 mg/dL (70-99) Calcium Level 8.3 mg/dL (8.5-10.1) 8.0 mg/dL (8.5-10.1) Total Bilirubin 0.2 mg/dL (0.2-1.0) Aspartate Amino Transf (AST/SGOT) 18 U/L (15-37) Alanine Aminotransferase (ALT/SGPT) 12 U/L (14-59) Alkaline Phosphatase 90 U/L (46-116) Troponin I Quantitative < 0.017 ng/mL (0.000-0.055) XT-Suk-R-Type Natriuretic Peptide 28 pg/mL (0-124) Total Protein 6.8 g/dL (6.4-8.2) Albumin 3.3 g/dL (3.4-5.0) Albumin/Globulin Ratio 0.9 (1.0-1.7) Influenza Type A Antigen Positive (NEGATIVE) Influenza Type B Antigen Negative (NEGATIVE) Laboratory Tests Test 12/19/18 09:30 Sodium Level 144 mmol/L (136-145) Potassium Level 2.8 mmol/L (3.5-5.1) Chloride Level 110 mmol/L (98-107) Carbon Dioxide Level 19 mmol/L (21-32) Anion Gap 15 (6-14) Blood Urea Nitrogen 5 mg/dL (7-20) Creatinine 0.6 mg/dL (0.6-1.0) Estimated GFR (Cockcroft-Gault) 123.0 Glucose Level 121 mg/dL (70-99) Calcium Level 8.0 mg/dL (8.5-10.1) Medications Current Medications Albuterol/ Ipratropium (Duoneb) 6 ml 1X ONCE NEB Last administered on at 06:26; Start 12/18/18 at 06:15; Stop 12/18/18 at 06:16; Status DC Methylprednisolone Sodium Succinate (SOLU-Medrol 125MG VIAL) 125 mg 1X ONCE IV Last administered on 12/18/18at 06:34; Start 12/18/18 at 06:15; Stop 12/18/18 at 06:16; Status DC Sodium Chloride 1,000 ml @ 1,000 mls/hr 1X ONCE IV Last administered on at 06:34; Start 12/18/18 at 06:15; Stop 12/18/18 at 07:14; Status DC Potassium Chloride (Klor-Con) 40 meq 1X ONCE PO Last administered on at 07:16; Start 12/18/18 at 07:00; Stop 12/18/18 at 07:02; Status DC Ondansetron HCl (Zofran) 4 mg PRN Q8HRS PRN IV NAUSEA/VOMITING; Start 12/18/18 at 07:45; Stop 12/19/18 at 07:44; Status DC Sodium Chloride 1,000 ml @ 125 mls/hr Q8H IV Last administered on 12/19/18at 03 :52; Start 12/18/18 at 07:32; Stop 12/19/18 at 07:31; Status DC Albuterol/ Ipratropium (Duoneb) 3 ml RTQID NEB Last administered on 12/18/18at 19:19; Start 12/18/18 at 08:00; Stop 12/19/18 at 07:59; Status DC Acetaminophen/ Hydrocodone Bitart (Lortab 5/325) 1 tab PRN Q4HRS PRN PO PAIN Last administered on 12/19/18at 06:31; Start 12/18/18 at 11:30 Oseltamivir Phosphate (Tamiflu) 75 mg BID PO Last administered on 12/18/18at 21: 10; Start 12/18/18 at 12:00; Stop 12/23/18 at 11:59 Influenza Virus Vaccine (Afluria Trivalent 6928-1880 Syringe) 0.5 ml ONCE ONCE VAX IM ; Start 12/18/18 at 13:00; Stop 12/18/18 at 13:01; Status DC Influenza Virus Vaccine (Afluria Trivalent 3436-0145 Syringe) 0.5 ml ONCE ONCE VAX IM ; Start 12/19/18 at 08:45; Stop 12/19/18 at 08:46; Status DC Ondansetron HCl (Zofran) 4 mg PRN Q6HRS PRN IV NAUSEA/VOMITING; Start 12/19/18 at 09:15 Ondansetron HCl (Zofran Odt) 4 mg PRN Q6HRS PRN PO NAUSEA/VOMITING; Start 12/19 at 09:15 Potassium Chloride/Sodium Chloride 1,000 ml @ 75 mls/hr 1X ONCE IV ; Start at 09:30; Stop 12/19/18 at 22:49 Acetaminophen (Tylenol) 500 mg PRN Q6HRS PRN PO FEVER / TEMP; Start 12/19/18 at 09:15 Acetaminophen/ Codeine Phosphate (Tylenol #3) 1 tab PRN Q6HRS PRN PO PAIN MILD ; Start 12/19/18 at 09:15 Guaifenesin (Robitussin Dm) 10 ml PRN Q6HRS PRN PO COUGH; Start 12/19/18 at 09: 15 Cetirizine HCl (ZyrTEC) 10 mg DAILY PO ; Start 12/19/18 at 09:30 Albuterol/ Ipratropium (Duoneb) 3 ml RTQID NEB Last administered on 12/19/18at 10:02; Start 12/19/18 at 12:00 Amlodipine Besylate (Norvasc) 5 mg DAILY PO ; Start 12/19/18 at 09:30 Furosemide (Lasix) 20 mg DAILY PO ; Start 12/19/18 at 09:30 Lisinopril (Prinivil) 20 mg DAILY PO ; Start 12/19/18 at 09:30 Morphine Sulfate (Ms Contin) 15 mg BID PO ; Start 12/19/18 at 09:30 Oxycodone/ Acetaminophen (Percocet 7.5/ 325) 1 tab PRN Q4HRS PRN PO PAIN MOD TO SEV; Start 12/19/18 at 09:15 Potassium Chloride (Klor-Con) 10 meq DAILY08 PO ; Start 12/19/18 at 09:30 Non-Formulary Medication (Celecoxib (Celebrex)) 400 mg 1X PO ; Start 12/19/18 at 09:15; Status UNV Acetaminophen/ Butalbital/ Caffeine (Fioricet) 1 tab PRN BID PRN PO MIGRAINE HEADACHE; Start 12/19/18 at 09:30 Sennosides (Senna) 8.6 mg BID PO ; Start 12/19/18 at 09:30 Active Scripts Active Reported Percocet 7.5-325 Mg Tablet (Oxycodone/Acetaminophen) 1 Each Tablet 1 Tab PO PRN Q48HR PRN Celebrex (Celecoxib) 200 Mg Capsule 400 Mg PO 1X 30 Days Potassium Chloride 10 Meq Tablet.er 10 Meq PO DAILY Ms Contin (Morphine Sulfate) 30 Mg Tablet.er 15 Mg PO BID Senokot (Sennosides) 8.6 Mg Tablet 1 Tab PO BID Amlodipine Besylate 5 Mg Tablet 5 Mg PO DAILY Fiorinal-Cod [id number] Cap (Codeine/Butalbital/Asa/Caffein) 1 Each Capsule 1 Each PO PRN BID PRN Lasix (Furosemide) 20 Mg Tablet 1 Tab PO DAILY Lisinopril 20 Mg Tablet 20 Mg PO DAILY Vitals/I & O Vital Sign - Last 24 Hours 12/18/18 12/18/18 12/18/18 12/18/18 10:54 11:15 11:27 12:30 Temp 97.6 97.6 Pulse 71 Resp 20 20 B/P (MAP) 142/82 (102) Pulse Ox 96 96 96 O2 Delivery Room Air Room Air Room Air 12/18/18 12/18/18 12/18/18 12/18/18 14:53 15:04 15:20 15:55 Temp 97.6 98.3 97.6 98.3 Pulse 71 74 Resp 19 20 18 18 B/P (MAP) 142/82 (102) 160/99 (119) Pulse Ox 96 96 96 O2 Delivery Room Air Room Air Room Air 12/18/18 12/18/18 12/18/18 12/18/18 16:57 19:05 19:19 19:51 Temp 98.0 98.0 Pulse 81 Resp 18 20 B/P (MAP) 138/63 (88) Pulse Ox 96 100 O2 Delivery Room Air Room Air Room Air Room Air 12/18/18 12/18/18 12/18/18 12/19/18 20:00 23:08 23:27 00:27 Temp 98.1 98.1 Pulse 74 Resp 20 B/P (MAP) 143/66 (91) Pulse Ox 99 O2 Delivery Room Air Room Air Room Air Room Air 12/19/18 12/19/18 12/19/18 12/19/18 03:07 06:31 07:30 10:02 Temp 97.9 97.9 97.9 97.9 Pulse 71 79 Resp 20 18 B/P (MAP) 114/75 (88) 165/94 (117) Pulse Ox 100 100 O2 Delivery Room Air Room Air Room Air Room Air Intake and Output 12/18/18 12/18/18 12/19/18 15:00 23:00 07:00 Intake Total 360 ml 240 ml 370 ml Balance 360 ml 240 ml 370 ml CARTER HWANG MD Dec 19, 2018 10:27
[2018-12-19] MEDS: guaiFENesin DM 200MG/20MG 10 ML SYRUP PO PRN (10:41)
[2018-12-19] MEDS: OSELTAMIVIR 75 MG CAPSULE PO SCH ×2 (10:43→20:55)
[2018-12-19] MEDS: POTASSIUM CHLORIDE 10 MEQ TABLET.ER. PO SCH (10:43)
[2018-12-19] MEDS: CETIRIZINE HCL 10 MG TABLET. PO SCH (10:43)
[2018-12-19] MEDS: FUROSEMIDE 20 MG TABLET PO SCH (10:44)
[2018-12-19] MEDS: MORPHINE ER 15 MG TABLET.ER PO SCH ×2 (10:44→20:55)
[2018-12-19] MEDS: LISINOPRIL 20 MG TABLET PO SCH (10:45)
[2018-12-19] MEDS: amLODIPine BESYLATE 5 MG TABLET PO SCH (10:45)
[2018-12-19 11:30] VITALS: BP 167/93
--- NOTE | 2018-12-19 12:00 | NUR ---
Patient had critical result of K 2.8 this morning at 0956. Relayed result to Dr. Hirsch who was rounding the unit at 1000, no new orders received.
[2018-12-19 15:30] VITALS: BP 102/59
--- NOTE | 2018-12-19 16:17 | NUR ---
SW following pt for anticipated dc needs. Chart reviewed and discussed with RN. Pt lives at home with family. No SW needs noted at this time. Will continue to evaluate.
--- NOTE | 2018-12-19 16:20 | NUR ---
Flu vaccine scheduled to be administered today. Vaccine given this morning before note to hold administration was received.
--- NOTE | 2018-12-19 18:24 | NUR ---
Patient complains of burning substernal pain when eating. She claims that she had a history of reflux. Paged Dr. Bullock at [phone], received orders for protonix and tums.
[2018-12-19] MEDS ORDERED: CALCIUM CARBONATE 500 MG TAB.CHEW PO PRN (18:30)
[2018-12-19 19:54] VITALS: BP 105/60
[2018-12-19] MEDS: PANTOPRAZOLE 40 MG TABLET.DR. PO SCH (20:55)
[2018-12-19 23:57] VITALS: BP 106/55
[2018-12-20] MEDS: guaiFENesin DM 200MG/20MG 10 ML SYRUP PO PRN (03:12)
[2018-12-20 03:47] VITALS: BP 106/63
[2018-12-20 07:15] VITALS: BP 117/71
[2018-12-20] MEDS: IPRATRPIUM/ALBUTEROL 0.5/2.5MG 3 ML NEBU. NEB SCH ×2 (07:38→11:32)
[2018-12-20] MEDS: SENNOSIDES 8.6 MG TABLET PO SCH (09:00)
[2018-12-20] MEDS ORDERED: POTASSIUM CHLORIDE 20 MEQ TABLET.ER. PO ONE ×2 (09:15→12:00)
[2018-12-20] MEDS: LISINOPRIL 20 MG TABLET PO SCH (09:35)
[2018-12-20] MEDS: FUROSEMIDE 20 MG TABLET PO SCH (09:35)
[2018-12-20] MEDS: CETIRIZINE HCL 10 MG TABLET. PO SCH (09:36)
[2018-12-20] MEDS: PANTOPRAZOLE 40 MG TABLET.DR. PO SCH (09:36)
[2018-12-20] MEDS: MORPHINE ER 15 MG TABLET.ER PO SCH (09:37)
[2018-12-20] MEDS: amLODIPine BESYLATE 5 MG TABLET PO SCH (09:37)
[2018-12-20] MEDS: OSELTAMIVIR 75 MG CAPSULE PO SCH (09:37)
[2018-12-20] MEDS: POTASSIUM CHLORIDE 10 MEQ TABLET.ER. PO SCH (09:38)
[2018-12-20] MEDS ORDERED: OSEL75CA PO (10:36)
[2018-12-20] MEDS ORDERED: Pantoprazole PO (10:36)
[2018-12-20] MEDS ORDERED: CETI10TA16 PO (10:36)
[2018-12-20] MEDS ORDERED: POTA20TA82 PO (10:36)
--- NOTE | 2018-12-20 10:59 | PDOC3 ---
Discharge Summary Visit Information Date of Admission: Dec 18, 2018 Date of Discharge: Dec 20, 2018 Admitting Diagnosis Comment: Influenza A+ Mild hypernatremia-147, corrected Critical hypokalemia 2.6 sec to POOR PO SOA, cough, fevers secondary to above SIRS POA Increase anion gap 16 on admission, resolved with IVF By mouth intake 7 days Chronic leg edema-currently none--maintained on Lasix at home Final Diagnosis Problems Medical Problems: (1) Acute bronchospasm Status: Acute (2) Influenza A Status: Acute Brief Hospital Course Allergies Allergies Coded Allergies Type Severity Reaction Last Updated Verified Penicillins Allergy Intermediate Rash 07/04/17 Yes Vital Signs Vital Signs Date Time Temp Pulse Resp B/P (MAP) Pulse Ox O2 Delivery O2 Flow Rate FiO2 12/20/18 09:37 18 98 Room Air 12/20/18 09:37 75 117/71 12/20/18 07:15 98.1 98.1 Lab Results Laboratory Tests Test 12/19/18 09:30 Sodium Level 144 mmol/L (136-145) Potassium Level 2.8 mmol/L (3.5-5.1) Chloride Level 110 mmol/L (98-107) Carbon Dioxide Level 19 mmol/L (21-32) Anion Gap 15 (6-14) Blood Urea Nitrogen 5 mg/dL (7-20) Creatinine 0.6 mg/dL (0.6-1.0) Estimated GFR (Cockcroft-Gault) 123.0 Glucose Level 121 mg/dL (70-99) Calcium Level 8.0 mg/dL (8.5-10.1) Brief Hospital Course Ms. Phillips is a 63 old is admitted for influenza A. I treated with Tamiflu. She had some anion gap elevation critical hypokalemia because of poor by mouth intake for 7 days because of feeling sick from the flu. We have corrected that with IV fluids. Stayed 2 midnights. Rx him Tamiflu and other supportive meds to home We are rechecking potassium 12 noon after placing make sure it is still not critically low Discussed with RN at bedside, patient seen and examined Procedure is performed none Dispo: home independent Discharge Information Condition at Discharge: Improved, Stable Disposition/Orders: D/C to Home Scheduled Amlodipine Besylate (Amlodipine Besylate) 5 Mg Tablet, 5 MG PO DAILY, (Reported) Entered as Reported by: ANTONY MCLEAN on 06/15/17 1107 Last Taken: Unknown Dose on 12/17/18899 Last Action: Continued on 906 by CARTER HWANG Celecoxib (Celebrex) 200 Mg Capsule, 400 MG PO 1X for 30 Days, Ref 0 (Reported) Entered as Reported by: GAVIN TORRES on 07/04/17 0708 Last Action: Converted on 12/19/18906 by CARTER HWANG Cetirizine Hcl (Cetirizine Hcl) 10 Mg Tablet, 10 MG PO DAILY for uri MDD 1, #7 Prescribed by: CARTER HWANG on 12/20/18 1036 Furosemide (Lasix) 20 Mg Tablet, 1 TAB PO DAILY, #90 Ref 1 (Reported) Entered as Reported by: VENKAT HU on 01/19/15 1238 Last Taken: Unknown Dose on 12/17/18899 Last Action: Continued on 906 by CARTER HWANG Lisinopril (Lisinopril) 20 Mg Tablet, 20 MG PO DAILY for FOR HYPERTENSION, #30 Ref 0 (Reported) Entered as Reported by: EDILMA GOTTLIEB on 04/21/14 0412 Last Taken: Unknown Dose on 12/17/18899 Last Action: Continued on 906 by CARTER HWANG Morphine Sulfate Er (Ms Contin) 30 Mg Tablet.er, 15 MG PO BID, (Reported) Entered as Reported by: ANTONY MCLEAN on 06/15/17 1109 Last Taken: Unknown Dose on 12/17/18899 Last Action: Continued on 906 by CARTER HWANG Oseltamivir Phosphate (Tamiflu) 75 Mg Capsule, 75 MG PO BID for flu MDD 1, #10 Prescribed by: CARTER HWANG on 12/20/18 1036 Potassium Chloride (Potassium Chloride) 10 Meq Tablet.er, 10 MEQ PO DAILY, ( Reported) Entered as Reported by: VENKAT HU on 06/30/17 1636 Last Action: Continued on 12/19/18906 by CARTER HWANG Potassium Chloride (Potassium Chloride) 20 Meq Tablet.er, 20 MEQ PO DAILY for low K, #7 Prescribed by: CARTER HWANG on 12/20/18 1036 Sennosides (Senokot) 8.6 Mg Tablet, 1 TAB PO BID, #40 (Reported) Entered as Reported by: ANTONY MCLEAN on 06/15/17 1108 Last Taken: Unknown Dose on 12/16/181999 Last Action: Converted on 906 by CARTER HWANG [Pantoprazole] 40 MG TABLET.DR, 40 MG PO DAILYAC for gerd MDD 1 for 14 Days Prescribed by: CARTER HWANG on 12/20/18 1036 Scheduled PRN Codeine/Butalbital/Asa/Caffein (Fiorinal-Cod 45-99-204-40 Cap) 1 Each Capsule, 1 EACH PO PRN BID PRN for PAIN, (Reported) Entered as Reported by: VENKAT HU on 01/19/15 1239 Last Taken: Unknown Dose on 12/04/18 Last Action: Converted on 12/19/18906 by CARTER HWANG Oxycodone/Apap 7.5-325 (Percocet 7.5-325 Mg Tablet ) 1 Each Tablet, 1 TAB PO PRN Q48HR PRN for PAIN, #80 Ref 0 (Reported) Entered as Reported by: RU PRADO on 07/05/17 1117 Last Action: Continued on 12/19/18906 by CARTER SHULTZ MD Dec 20, 2018 10:59
[2018-12-20 11:01] VITALS: BP 131/81
--- NOTE | 2018-12-20 13:44 | NUR ---
Discharge Note: EARLE SPAULDING [address] Discharge instructions and discharge home medications reviewed with patient and a copy given. All questions have been answered and understanding verbalized. The following instructions and handouts were given: Influenza A handout. Wear mask, stay at home, oral fluid intake, get more rest. Prescriptions given for pantoprazole, Tamiflu, potassium chloride and cetirizine Discontinued lines and drains: peripheral IV intact, no complicatons noted on removal. Patient discharged to home with self-care accompanied by family members via wheelchair at 1346.
== END 2018-12-20 13:43 | disposition home or self-care (01) | DRG 194 ==
LOC: ER 05:47 → 6 SOUTH 07:50
PROVIDERS: ADMIT Internal Medicine; ATTEND Internal Medicine
DX: J10.1 Influenza due to other identified influenza virus with other respiratory manifestations (principal); E87.0 Hyperosmolality and hypernatremia; R65.10 Systemic inflammatory response syndrome (SIRS) of non-infectious origin without acute organ dysfunction; E87.2 Acidosis; F11.20 Opioid dependence, uncomplicated; J98.01 Acute bronchospasm; E87.6 Hypokalemia; I10 Essential (primary) hypertension; G43.909 Migraine, unspecified, not intractable, without status migrainosus; G89.29 Other chronic pain; M19.90 Unspecified osteoarthritis, unspecified site; K21.9 Gastro-esophageal reflux disease without esophagitis; Z96.641 Presence of right artificial hip joint; Z79.899 Other long term (current) drug therapy; Z82.49 Family history of ischemic heart disease and other diseases of the circulatory system; Z86.73 Personal history of transient ischemic attack (TIA), and cerebral infarction without residual deficits; Z90.49 Acquired absence of other specified parts of digestive tract; Z90.710 Acquired absence of both cervix and uterus; Z98.51 Tubal ligation status; Z88.0 Allergy status to penicillin
CPT/HCPCS: 36415; 71045; 80048; 80053; 83880; 84132; 84484; 85025; 87804; 90471; 90756; 93005; 94640; 96361; 96374; J2930; J3480; J7030; J7620; 99285-25; Q2035

== ENCOUNTER → 2020-06-05 | Outpatient (CLI) | payer MEDICARE, OTHER ==
[~2020-06-05] MED LIST changes: +CETI10TA16 PO; +CYAN-25 PO; -CYAN10005 PO; +OSEL75CA PO; -PANT40TA3 PO; +PANT40TA77 PO; -POTA10TA12 PO; +POTA20TA4 PO; +POTASSIUM CHLO10 ME1 PO; +Pantoprazole PO
--- NOTE | 2020-06-05 11:54 | KCIC ---
EXAM: DUAL ENERGY X-RAY ABSORPTIOMETRY (DEXA). HISTORY: Postmenopausal screening. FINDINGS: The lowest measured T-score is -2.7 in the lumbar spine, based on a bone mineral density of 0.751 g/cm^2. Refer to the worksheets for full detail. No comparison examinations are available. IMPRESSION: Osteoporosis. Bone mineral density yields a T-score of -2.5 or less. Fracture risk is high. METHODOLOGY: Dual energy x-ray absorptiometry was performed to measure bone mineral density. The following analysis is based on the 2019 Official Positions of the International Society for Clinical Densitometry: Measurements of the hips and the average of L1-L4 are preferred. When the spine and/or hip cannot be feasibly measured or interpreted, or in the setting of hyperparathyroidism, distal radial bone mineral density may be measured. The lumbar spine T-score is based on the average bone mineral density of L1-L4. In the setting of artifact or anatomic abnormality, some lumbar levels may be excluded, and the remaining levels used for calculation. A single lumbar level is not used for diagnosis, and if only a single level is available for assessment, another anatomic site will be used to assign a diagnosis. The hip T-score is based on the bone mineral density measurement of the femoral neck or total proximal femur of either side, whichever is lowest. Bilateral mean values are not used for diagnosis. The forearm T-score is derived from 33% of the distal radius of the nondominant forearm. Electronically signed by: Jojo Lugo MD (06/05/2020 11:51 AM) [id number]
== END ==
LOC: KCIC DEXA 11:02
PROVIDERS: ATTEND Family Medicine
DX: M81.0 Age-related osteoporosis without current pathological fracture (principal); E55.9 Vitamin D deficiency, unspecified; Z78.0 Asymptomatic menopausal state
CPT/HCPCS: 77080

== ENCOUNTER → 2020-06-19 | Outpatient (CLI) | payer MEDICARE, OTHER ==
--- NOTE | 2020-06-19 14:37 | KCIC ---
Bilateral digital screening mammograms with 3-D tomosynthesis: Reason for examination: Routine screening. Comparison is made to previous study dated 02/02/2016. Bilateral mammograms in CC and oblique projections were obtained with 2-D imaging and 3-D tomosynthesis imaging on a Siemens Inspiration unit and reviewed on the workstation. Interpretation was made with the benefit of CAD. The skin and nipples show no abnormalities. No abnormal axillary lymph nodes are seen. The breast parenchyma shows scattered fatty and fibroglandular density. (Breast density: Category B.) There is a small circumscribed 3.5 mm nodule at approximately the 3:30 B position of the left breast. Further evaluation with ultrasound is recommended. There are no other dominant masses, suspicious calcifications or architectural distortion. Impression: 3.5 mm nodule at approximately the 3:30 B position approximately 3 cm from the nipple of the left breast. Recommend further evaluation with ultrasound. BI-RADS Category 0: Incomplete. Needs additional imaging evaluation. "Our facility is accredited by the [employer] Mammography [employer]." This patient's information has been entered into a reminder system for the patient to be notified with the results of her examination and a target date for the next mammogram. Electronically signed by: Kayleigh Vang MD (06/19/2020 2:34 PM) [id number]
== END | disposition home or self-care (01) ==
LOC: KCIC MAMMO 09:53
PROVIDERS: ATTEND Family Medicine
DX: Z12.31 Encounter for screening mammogram for malignant neoplasm of breast (principal); N64.89 Other specified disorders of breast
CPT/HCPCS: 77063; 77067

== ENCOUNTER → 2020-07-08 | Outpatient (CLI) | payer OTHER ==
[~2020-07-08] MED LIST changes: +AMLO-186 PO; -AMLO5TAB10 PO
--- NOTE | 2020-07-08 10:26 | KCIC ---
Left breast ultrasound: Reason for examination: Nodular density on screening mammogram. Comparison is made to mammographic exam dated 06/19/2020. Ultrasound examination was performed with attention to the area of mammographic concern and the left axilla. At the 3:30 position 1 cm from the nipple, there appears to be a small 3.7 mm hypoechoic lesion in parallel orientation with a fatty hilum. The appearance is consistent with a small intramammary lymph node. No other cystic or solid lesions are seen. No abnormal appearing lymph nodes are seen in the axilla. IMPRESSION: Small nodule consistent with an intramammary lymph node at the 3:30 position. No other focal abnormality seen in the left breast. Recommend routine mammographic follow-up. BI-RADS Category 2: Benign. "Our facility is accredited by the [employer] Mammography [employer]." This patient's information has been entered into a reminder system for the patient to be notified with the results of her examination and a target date for the next mammogram. Electronically signed by: Kayleigh Vang MD (07/08/2020 10:22 AM) [email or web address]
== END ==
LOC: KCIC US 07:59
PROVIDERS: ATTEND Family Medicine
DX: R92.8 Other abnormal and inconclusive findings on diagnostic imaging of breast (principal); N63.23 Unspecified lump in the left breast, lower outer quadrant
CPT/HCPCS: 76641